=== PATIENT | male | born 1965 | race American Indian/Alaskan Native ===

== ENCOUNTER 2016-11-20 17:13 | Emergency (ER) | payer OTHER ==
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
[2016-11-20 21:52] VITALS: BP 117/77
== END 2016-11-20 21:52 | disposition home or self-care (01) ==
LOC: ED 17:13
DX: M54.5 Low back pain (principal); M54.2 Cervicalgia; V49.49XA Driver injured in collision with other motor vehicles in traffic accident, initial encounter; X58.XXXA Exposure to other specified factors, initial encounter; Y93.9 Activity, unspecified; Y92.9 Unspecified place or not applicable; Y99.9 Unspecified external cause status
CPT/HCPCS: 72125; 72128; 72131; 99283

== ENCOUNTER 2017-03-22 17:31 | Emergency (ER) | payer SELFPAY ==
[2017-03-22] MEDS ORDERED: TORADOL IM ONE (23:00)
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
[2017-03-23 00:27] VITALS: BP 117/81
== END 2017-03-23 00:15 | disposition home or self-care (01) ==
LOC: ED 17:31
DX: G89.29 Other chronic pain (principal); M54.5 Low back pain
CPT/HCPCS: 96372; 99282; J1885